=== PATIENT | female | born 1980 | race Caucasian/White ===

== ENCOUNTER 2016-04-08 11:04 | Emergency (ER) ==
--- NOTE | 2016-04-08 12:08 | PROVIDER DOCUMENTATION ---
HPI-Work Related Injury - General Chief Complaint: Work Related Injury Stated Complaint: WORK RELATED INJ Time Seen by Provider: 04/08/16 11:34 Source: patient Allergies/Adverse Reactions: Patient Allergies Allergy/AdvReac Type Severity Reaction Status Date / Time acetaminophen [From NyQuil] AdvReac Unknown Verified 03/24/15 10:22 dextromethorphan HBr * AdvReac Unknown Verified 11/10/15 10:13 [From NyQuil] diphenhydramine HCl * AdvReac restless Verified 11/10/15 10:13 [From Tylenol PM] leg doxylamine succinate * AdvReac Unknown Verified 11/10/15 10:13 [From NyQuil] pseudoephedrine HCl * AdvReac Unknown Verified 11/10/15 10:13 [From NyQuil] Home Medications: Home Medication List Medication Instructions Recorded Confirmed Last Taken Type Gabapentin [Neurontin] 300 mg PO TID 04/08/16 04/08/16 Unknown History Tramadol [Ultram] 50 mg PO 04/08/16 Unknown History - History of Present Illness-Work Injury Nature of PresentingProblem: Pt is 36 y/o F presents to the ED with work related injury. Pt states she was at work and was carrying something and slipped in something wet and fell on her buttocks. Pt states the pain is in her lower back that radiates up to neck. Pt denies urinary problems. Pt states numbness in L arm radiating to L hand. Pt states numbness in L leg but also states having a recent fib and tib fracture to L leg. Location of Pain/Injury: reports: back Pain Radiation: reports: neck Quality of Pain: reports: aching, pressure Severity: reports: moderate Onset/Duration: reports: just prior to arrival Timing: reports: still present, intermittent Modifying Factors: improves with: nothing Associated Symptoms: reports: back/neck pain (back and neck). denies: anxiety, arm pain, chest pain, constipation, cough, diaphoresis, diarrhea, dizziness, EENT symptoms, fatigue, fever/chills, genitourinary problems, headaches, heartburn, joint pain, loss of appetite, malaise, muscle aches, sinus congestion /drainage, nausea, rash, seizure, shortness of breath, sensory/motor loss, pain with inspiration, swelling/mass in abdomen, syncope, vomiting, weakness, trouble walking Similar Symptoms Previously?: No Recently seen or treated by another doctor?: No Review of Systems - Adult - REVIEW OF SYSTEMS - ADULT Constitutional: denies: chills, fever Eyes: denies: blurred vision, double vision Ears, Nose, Mouth & Throat: denies: ear pain, nose pain, throat pain Cardiovascular: reports: irregular heart rate (tachy). denies: chest pain, heart murmur Respiratory: denies: cough, shortness of breath, wheezing Gastrointestinal: denies: abdominal pain, diarrhea, nausea, vomiting Genitourinary: denies: dysuria, hematuria Musculoskeletal: reports: back pain, neck pain. denies: bone pain, joint pain Integumentary: denies: hives, itching Neurological: reports: numbness (to L arm). denies: dizziness/vertigo, headache /migraines Psychiatric: denies: anxiety, depression Endocrine: reports: no symptoms reported Hematologic/Lymphatic: reports: no symptoms reported Allergic/Immunologic: reports: no symptoms reported All Other Systems: Reviewed and Negative Past History - Adult - PAST MEDICAL HISTORY-ADULT Review of Records: reports: Nursing Assessment Review, Medications Reviewed, Social history reviewed & non-contributory. Major Childhood Illnesses: reports: denies history Cardiovascular: reports: denies history Respiratory: reports: denies history Gastrointestinal: reports: denies history Obstetrical/Gynecological: reports: denies history Genitourinary: reports: denies history Musculoskeletal: reports: denies history Neurological: reports: denies history Endocrine/Immune: reports: denies history Other Conditions: reports: denies history - PRIOR SURGERIES/PROCEDURES Surgical/Procedure History: reports: reviewed, not pertinent, orthopedic ( extremity) - IMMUNIZATION STATUS Childhood Immunizations: See Nurse Assessment Flu Vaccine: See Nurse Assessment - FAMILY HISTORY Family History: reviewed, not pertinent - SOCIAL HISTORY Smoking: cigarettes, greater than 1 pack/day Provider spent 3-5 mins advising pt. on dangers of tobacco.: Discussed manners to quit use, and f/u contacts for add'l counseling. Substance Use: alcohol Alcohol Use Frequency: occasionally Number of drinks per typical drinking period:: 2 drinks Living Situation: family Physical Exam-Injury Related - Physical Exam-Injury Related Initial Vital Signs Reviewed: Yes General Appearance: appears well, alert, mild distress Immobilization?: C-collar Eyes: PERRL/EOMI, pink conjunctivae, fundi clear, no AV nicking Head, Ears, Nose, Mouth & Throat: normocephalic/atraumatic, moist mucous membranes, normal ENT inspection, TMs normal, pharynx normal Neck: limited range of motion, tender midline Respiratory: chest non-tender, lungs clear, normal breath sounds, no pleuratic chest pain, no respiratory distress, no accessory muscle use Cardiovascular: normal peripheral pulses, no edema, no gallop, no JVD, no murmur , tachycardia Abdominal Exam: normal bowel sounds, non tender, soft, no organomegaly, no pulsatile mass Lymphatic: no adenopathy Back Exam: no CVA tenderness, decreased range of motion, vertebral tenderness Extremity: normal range of motion, non-tender, normal gait, normal inspection, no pedal edema, no calf tenderness Integumentary: normal color, warm/dry Neurologic: die hardener II-XII nml as tested, grossly normal, no motor/sensory deficits Psych/Mental Status: normal mood/affect, normal thought content, normal thought process, oriented x 3 Progress - PLAN OF CARE/RESULTS Progress/Plan/Lab Results: Orders Category Date Time Status ED: Urine Bedside ORDERED Care 04/08/16 11:18 Active CERVICAL SPINE W/O CONTRAST [CT] Stat Exams 04/08/16 11:35 Ordered T-SPINE/L-SPINE W/O CONTRAST [CT] Stat Exams 04/08/16 11:35 Ordered Vital Signs - 24 hr 04/08/16 11:07 Temperature 98 F Pulse Rate 103 H O2 Sat by Pulse 100 Oximetry - CT/MRI 1 CT Study: Cervical Spine Impression: Normal CT Results: NAD 2 CT Study: Lumbar Spine (no fx or subluxation, disk bulge at L4-5 and L5-S1), other (t spine - nad) Impression: Abnormal Departure - Departure Time of Disposition Order: 13:56 DIAGNOSIS: Back strain Qualifiers: Encounter type: initial encounter Qualified Code(s): S39.012A - Strain of muscle, fascia and tendon of lower back, initial encounter Disposition: HOME 01 Certified Medical Emergency: Emergent Condition: Stable Additional Instructions: ED Follow Up Instructions: You have been treated by a care provider in the Emergency Department. These instructions are being provided to you so you can have an understanding of how to care for yourself upon discharge. Upon discharge from the Emergency Department, you are responsible for making arrangements for follow-up care by a physician of your choice. Take all prescribed medications as directed. Return to the Emergency Department immediately for any new or worsening symptoms. You may call the Physician Referral phone number at [phone] to obtain a list of Physicians who are taking new patients. Referrals: None,PCP [Primary Care Provider] - Forms: Work Excuse Attestation - Scribe Verification/Attestation Scribe:: Ysabel Senior Acting as Scribe for:: William Perry Scribe documention review:: This chart was documented by a scribe and accurately reflects the service the provider performed and the decisions made by the provider.
[2016-04-08] MEDS ORDERED: ULTRAM PO ONE (13:34)
[2016-04-08] MEDS ORDERED: TORADOL PO ONE (13:35)
--- NOTE | 2016-04-08 15:03 | Diag Imaging Result Document ---
PROCEDURE NAME: CERVICAL SPINE W/O CONTRAST - 04/08/2016 CT OF THE CERVICAL SPINE: FINDINGS: The facets appear to be well aligned. There is no evidence of fracture or subluxation. There is osteophyte formation primarily anteriorly at the C6-7 level. There is some posterior osteophyte formation, however, and together with disk bulge there may be a mild degree of spinal stenosis. No evidence of fracture, subluxation or prevertebral soft tissue swelling is present. IMPRESSION: 1. Degenerative disk disease at C6-7. 2. No evidence of acute bony disease.
--- NOTE | 2016-04-08 15:11 | Diag Imaging Result Document ---
PROCEDURE NAME: T-SPINE/L-SPINE W/O CONTRAST - 04/08/2016 CT OF THE THORACIC SPINE: FINDINGS: There is no evidence of acute fracture or subluxation. There is no evidence of significant degenerative disease. IMPRESSION: No evidence of acute disease. CT OF THE LUMBAR SPINE: FINDINGS: There is no evidence of fracture or subluxation. The disk spaces are well maintained. There is an apparent metallic artifact in the L3-4 disk space. This is of uncertain significance, and the patient denied any previous surgery. There is some disk bulge at the L4-5 and L5-S1 levels. IMPRESSION: No evidence of acute bony disease.
== END 2016-04-08 14:41 | disposition home or self-care (01) ==
LOC: P.ED 11:04
DX: S39.012A Strain of muscle, fascia and tendon of lower back, initial encounter (principal); W01.0XXA Fall on same level from slipping, tripping and stumbling without subsequent striking against object, initial encounter; M54.5 Low back pain; R20.0 Anesthesia of skin; M54.2 Cervicalgia; R00.0 Tachycardia, unspecified; F17.210 Nicotine dependence, cigarettes, uncomplicated; Z71.6 Tobacco abuse counseling; Z79.899 Other long term (current) drug therapy
CPT/HCPCS: 72125; 72128; 72131; 81025